=== PATIENT | female | born 1990 | race Caucasian/White ===

== ENCOUNTER 2017-03-23 10:39 | Outpatient (CLI) | payer MEDICAID ==
[2017-03-23 11:37] LABS: APPEARANCE,URINE SLIGHTLY-CLOUDY; BILIRUBIN,URINE NEGATIVE (NEGATIVE); COLOR,URINE YELLOW; GLUCOSE, URINE NEGATIVE (NEGATIVE); KETONES,URINE NEGATIVE (NEGATIVE); LEUKOCYTE ESTERASE,URINE MODERATE (NEGATIVE); NITRITE,URINE NEGATIVE (NEGATIVE); PROTEIN,URINE NEGATIVE (NEGATIVE); URINE SPECIFIC GRAVITY 1.018; UROBILINOGEN,URINE NEGATIVE mg/dL (<2.0)
--- NOTE | 2017-03-23 11:56 | RADIOLOGY REPORT (SQ) ---
EXAM DESCRIPTION: U/S OB LIMITED COMPLETED DATE/TIME: 03/23/2017 11:42 am REASON FOR STUDY: iup 31+6 cervical length vaginal pressure COMPARISON: None. TECHNIQUE: Limited transabdominal and endovaginal grayscale ultrasound for evaluation of specific re quested obstetrical parameters. LIMITATIONS: None. FINDINGS: CERVICAL LENGTH: 3.3 cm Closed. ROS: 7.5 cm. FHR: 149 beats per minute. PRESENTATION: Cephalic. OTHER: No other significant findings. IMPRESSION: LIMITED OBSTETRICAL ULTRASOUND WITH MEASURED PARAMETERS DELINEATED ABOVE. Trimester of : Third trimester - 28 weeks to delivery. TECHNICAL DOCUMENTATION: JOB ID: [id number]- All Rights Reserved
[2017-03-23 11:58] LABS: URINE AMPHETAMINES SCREEN NEGATIVE; URINE BARBITURATES SCREEN NEGATIVE; URINE BENZODIAZEPINES SCREEN NEGATIVE; URINE COCAINE SCREEN NEGATIVE; URINE MARIJUANA (THC) SCREEN NEGATIVE; URINE METHADONE SCREEN NEGATIVE; URINE PHENCYCLIDINE SCREEN NEGATIVE
== END 2017-03-23 12:25 | disposition home or self-care (01) ==
LOC: LC 10:39
PROVIDERS: ATTEND Obstetrics & Gynecology Gynecology
PROC: 4A1HXCZ Monitoring of Products of Conception, Cardiac Rate, External Approach (ICD-10-PCS; principal; 2017-03-23)
DX: O26.893 Other specified pregnancy related conditions, third trimester (principal); E86.0 Dehydration; Z3A.31 31 weeks gestation of pregnancy
CPT/HCPCS: 76815; 80307; 81001; 94760

== ENCOUNTER 2017-04-28 17:38 | Outpatient (CLI) | payer MEDICAID ==
[2017-04-28 18:10] LABS: APPEARANCE,URINE SLIGHTLY-CLOUDY; BILIRUBIN,URINE NEGATIVE (NEGATIVE); COLOR,URINE YELLOW; GLUCOSE, URINE NEGATIVE (NEGATIVE); KETONES,URINE 20 mg/dL (NEGATIVE); LEUKOCYTE ESTERASE,URINE TRACE (NEGATIVE); NITRITE,URINE NEGATIVE (NEGATIVE); PROTEIN,URINE NEGATIVE (NEGATIVE); URINE SPECIFIC GRAVITY 1.012; UROBILINOGEN,URINE NEGATIVE mg/dL (<2.0)
[2017-04-28 18:18] LABS: AMNISURE (ROM) NEGATIVE (NEGATIVE)
[2017-04-28 18:26] LABS: URINE AMPHETAMINES SCREEN NEGATIVE; URINE BARBITURATES SCREEN NEGATIVE; URINE BENZODIAZEPINES SCREEN NEGATIVE; URINE COCAINE SCREEN NEGATIVE; URINE MARIJUANA (THC) SCREEN NEGATIVE; URINE METHADONE SCREEN NEGATIVE; URINE PHENCYCLIDINE SCREEN NEGATIVE
== END 2017-04-28 19:11 | disposition home or self-care (01) ==
LOC: LC 17:38
PROVIDERS: ATTEND Obstetrics & Gynecology Gynecology
PROC: 4A1HXCZ Monitoring of Products of Conception, Cardiac Rate, External Approach (ICD-10-PCS; principal; 2017-04-28)
DX: Z34.93 Encounter for supervision of normal pregnancy, unspecified, third trimester (principal); Z3A.37 37 weeks gestation of pregnancy
CPT/HCPCS: 59025; 80307; 81005; 84112

== ENCOUNTER 2017-05-07 10:50 | Outpatient (CLI) | payer MEDICAID ==
[2017-05-07 11:17] LABS: APPEARANCE,URINE CLOUDY; BILIRUBIN,URINE NEGATIVE (NEGATIVE); COLOR,URINE YELLOW; GLUCOSE, URINE NEGATIVE (NEGATIVE); KETONES,URINE NEGATIVE (NEGATIVE); LEUKOCYTE ESTERASE,URINE MODERATE (NEGATIVE); NITRITE,URINE NEGATIVE (NEGATIVE); PROTEIN,URINE NEGATIVE (NEGATIVE); URINE SPECIFIC GRAVITY 1.009; UROBILINOGEN,URINE NEGATIVE mg/dL (<2.0)
--- NOTE | 2017-05-07 11:27 | Non Stress Test Report ---
Non Stress Test Datetime Report Generated by CPN: 05/07/2017 11:26 DEMOGRAPHIC EGA NST: 38.2 EGA NST: 37.0 INDICATION Indication for Study: Ordered by Provider Indication for Study (NST) Other: LC MONITORING Monitor Explained: Monitor Explained; Test Explained; Patient Verbalized Understanding Monitor Explained: Monitor Explained; Test Explained; Patient Verbalized Understanding Time on Monitor: 05/07/2017 11:05 Time on Monitor: 04/28/2017 18:05 Time off Monitor: 05/07/2017 11:25 Time off Monitor: 04/28/2017 19:02 NST Duration: 20 NST Duration: 57 NST INTERVENTIONS NST Interventions: None NST Interventions: PO Hydration; Reposition Patient Physician Notified NST: H Dc CNM Physician Notified NST: Dr. Crocker BABY A: [id number] BABY A Movement : Present Movement : Present Contraction Frequency : irritability Contraction Frequency : None FHR Baseline : 135 FHR Baseline : 125 Accelerations : 15X15 Accelerations : 15X15 Decelerations : None Decelerations : None Variability : Moderate 6-25bpm Variability : Moderate 6-25bpm NST Review: Meets Criteria for Reactive NST NST Review: Meets Criteria for Reactive NST NST Review and Verified By : Shelley Salazar [facility] NST Review and Verified By : Alexander Pena RN NST Results: Reactive NST Results: Reactive NST REPORT Report Trigger: Send Report
[2017-05-07 11:41] LABS: URINE AMPHETAMINES SCREEN NEGATIVE; URINE BARBITURATES SCREEN NEGATIVE; URINE BENZODIAZEPINES SCREEN NEGATIVE; URINE COCAINE SCREEN NEGATIVE; URINE MARIJUANA (THC) SCREEN NEGATIVE; URINE METHADONE SCREEN NEGATIVE; URINE PHENCYCLIDINE SCREEN NEGATIVE
== END 2017-05-07 12:44 | disposition home or self-care (01) ==
LOC: LC 10:50
PROVIDERS: ATTEND Obstetrics & Gynecology
PROC: 4A1HXCZ Monitoring of Products of Conception, Cardiac Rate, External Approach (ICD-10-PCS; principal; 2017-05-07)
DX: O47.1 False labor at or after 37 completed weeks of gestation (principal); Z3A.38 38 weeks gestation of pregnancy
CPT/HCPCS: 59025; 80307; 81005

== ENCOUNTER 2017-05-12 06:15 | Inpatient (IN) | payer MEDICAID ==
[2017-05-12] MEDS ORDERED: RINGERS SOLUTION,LACTATED 300 ML IV ONE (06:18)
[2017-05-12] MEDS ORDERED: DINOPROSTONE 10 MG VAGINAL INSERT.SR PV PRN (06:18)
[2017-05-12] MEDS ORDERED: RINGERS SOLUTION,LACTATED 1,000 ML IV PRN (06:18)
[2017-05-12] MEDS ORDERED: OXYTOCIN/NORMAL SALINE 20 UNIT/1,000 ML RTUINJ IV PRN ×2 (06:18→13:32)
[2017-05-12 06:58] LABS: ABSOLUTE BASOPHILS # (AUTO) 0.1 10^3/uL (0.0-0.2); ABSOLUTE EOSINOPHILS # (AUTO) 0.3 10^3/uL (0.0-0.6); ABSOLUTE LYMPHOCYTES (AUTO) 2.6 10^3/uL (0.5-4.7); ABSOLUTE MONOCYTES (AUTO) 0.8 10^3/uL (0.1-1.4); ABSOLUTE NEUT (AUTO) 11.5 10^3/uL (1.7-8.2); BASOPHILS % (AUTO) 0.5 % (0-2); EOSINOPHILS % (AUTO) 1.9 % (0-6); HEMATOCRIT 38.9 % (36.0-47.0); HEMOGLOBIN 13.1 g/dL (12.0-15.5); MEAN CORPUSCULAR HEMOGLOBIN 31.6 pg (27.0-33.4); MEAN CORPUSCULAR HGB CONC 33.6 g/dL (32.0-36.0); MEAN CORPUSCULAR VOLUME 94 fl (80-97); MONOCYTES % (AUTO) 5.1 % (3-13); PLATELET COUNT 241 10^3/uL (150-450); RED BLOOD COUNT 4.13 10^6/uL (3.72-5.28); SEGMENTED NEUTROPHILS % (AUTO) 75.5 % (42-78); TOTAL CELLS COUNTED % (AUTO) 100 %; WHITE BLOOD COUNT 15.2 10^3/uL (4.0-10.5)
[2017-05-12 07:06] LABS: APPEARANCE,URINE CLOUDY; BILIRUBIN,URINE NEGATIVE (NEGATIVE); COLOR,URINE YELLOW; GLUCOSE, URINE >=500 mg/dL (NEGATIVE); KETONES,URINE TRACE mg/dL (NEGATIVE); LEUKOCYTE ESTERASE,URINE NEGATIVE (NEGATIVE); NITRITE,URINE NEGATIVE (NEGATIVE); PROTEIN,URINE NEGATIVE (NEGATIVE); URINE SPECIFIC GRAVITY 1.008; UROBILINOGEN,URINE NEGATIVE mg/dL (<2.0)
[2017-05-12] MEDS ORDERED: MISOPROSTOL 0.2 MG TABLET ONE (07:25)
[2017-05-12] MEDS ORDERED: LIDOCAINE 1% INJ-PF (10 MG/ML) 30 ML SDV ONE (07:25)
[2017-05-12] MEDS ORDERED: OXYTOCIN/NORMAL SALINE 20 UNIT/1,000 ML RTUINJ ONE (07:25)
[2017-05-12 07:27] LABS: URINE AMPHETAMINES SCREEN NEGATIVE; URINE BARBITURATES SCREEN NEGATIVE; URINE BENZODIAZEPINES SCREEN NEGATIVE; URINE COCAINE SCREEN NEGATIVE; URINE MARIJUANA (THC) SCREEN NEGATIVE; URINE METHADONE SCREEN NEGATIVE; URINE PHENCYCLIDINE SCREEN NEGATIVE
--- NOTE | 2017-05-12 07:36 | Admission Physical ---
Datetime Report Generated by CPN: 05/12/2017 07:36 CURRENT ADMISSION Chief Complaint: Scheduled Induction of Labor Indication for Induction: Term, Intrauterine ; Induction of Labor Indication for Induction- Other: Elective due to "threat of imminent delivery" per Dr. Morales Admit Plan: Admit to Unit; Initiate Labor Induction Protocol ALLERGIES Medication Allergies: Yes Medication Allergies: codeine (05/12/2017); amoxicillin (05/12/2017) Latex: No Latex Allergies Food Allergies: N/A Environmental Allergies: N/A OBSTETRICAL HISTORY EDC: 05/19/2017 00:00 : 2 Para: 1 Term: 1 : 0 SAB: 0 IAB: 0 Ectopic: 0 Livin Cesareans: 0 VBACs: 0 Multiple Births: 0 Gestational Diabetes: No Rh Sensitization: No Incompetent Cervix: No ANDREWS: No Infertility: No ART Treatment: No Uterine Anomaly: No IUGR: No Hx Previous C/S: No Macrosomia: No Hx Loss/Stillborn: No PIH: No Hx : No Placenta Previa/Abruption: No Depression/PP Depression: No PTL/PROM: No Post Hemorrhage: No Current Procedures: Ultrasound Obstetrical History Comments: G1 2014, , Baby boy at 39 weeks started dilating at 5 months G2 - Current SEE RECORDS Alcohol: No Marijuana : No Cocaine: No Other Illicit Drugs: No Cigarettes: Smoker, Current Status Unknown. 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 Surgery: No Heart Disease: No Hosp/Surgery: Yes Autoimmune Disorder: No Anesthetic Complications: No Kidney Disease: No Abnormal Pap Smear: No Neuro/Epilepsy: No Psychiatric Disorders: No Other Medical Diseases: Yes Hepatitis/Liver Disease: No Significant Family History: No Varicosities/Phlebitis: No Trauma/Violence : No Thyroid Dysfunction: No Medical History Comments: Tonsillectomy in 2003; Pins in elbow in 1999 _ 2000 INFECTIOUS HISTORY Gonorrhea: No Genital Herpes: No Chlamydia: No Tuberculosis: No Syphilis: No Hepatitis: No HIV/AIDS Exposure: No Rash or Viral Illness: No HPV: No PHYSICAL EXAM General: Normal HEENT: Normal Neurologic: Normal Thyroid: Normal Heart: Normal Lungs: Normal Breast: Normal Back: Normal Abdomen: Normal Genitourinary Exam: Normal Extremities: Normal DTRs: Normal Pelvic Type: Adequate Vital Signs: Reviewed VAGINAL EXAM Dilatation: 2 Effacement: 80 Station: -2 MEMBRANES Pooling: Negative Membranes: Intact FETUS A EGA: 39.0 Monitoring: External US FHR- Baseline: 150 Variability: Moderate 6-25bpm Accelerations: 15X15 Decelerations: None FHR Category: Category I Estimated Weight (gm): 3500 Presentation: Vertex PLANS FOR LABOR AND DELIVERY Labor and Delivery: None Pain Management: Natural Feeding Preference: Formula Benefit of Breast Feed Discussed: Yes Circumcision: Yes INFORMED CONSENT Signature: with User ID: [email or web address]
--- NOTE | 2017-05-12 09:21 | Admission Physical ---
Datetime Report Generated by CPN: 05/12/2017 09:21 CURRENT ADMISSION Chief Complaint: Scheduled Induction of Labor Indication for Induction: Not Applicable Indication for Induction: Term, Intrauterine Indication for Induction- Other: Elective due to "threat of imminent delivery" per Dr. Morales Admit Plan: Admit to Unit ALLERGIES Medication Allergies: Yes Medication Allergies: codeine (05/12/2017); amoxicillin (05/12/2017) Latex: No Latex Allergies Food Allergies: N/A Environmental Allergies: N/A OBSTETRICAL HISTORY EDC: 05/19/2017 00:00 : 2 Para: 1 Term: 1 : 0 SAB: 0 IAB: 0 Ectopic: 0 Livin Cesareans: 0 VBACs: 0 Multiple Births: 0 Gestational Diabetes: No Rh Sensitization: No Incompetent Cervix: No ANDREWS: No Infertility: No ART Treatment: No Uterine Anomaly: No IUGR: No Hx Previous C/S: No Macrosomia: No Hx Loss/Stillborn: No PIH: No Hx : No Placenta Previa/Abruption: No Depression/PP Depression: No PTL/PROM: No Post Hemorrhage: No Current Procedures: Ultrasound Obstetrical History Comments: G1 2014, , Baby boy at 39 weeks started dilating at 5 months G2 - Current SEE RECORDS Alcohol: No Marijuana : No Cocaine: No Other Illicit Drugs: No Cigarettes: Smoker, Current Status Unknown. 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 Surgery: No Heart Disease: No Hosp/Surgery: Yes Autoimmune Disorder: No Anesthetic Complications: No Kidney Disease: No Abnormal Pap Smear: No Neuro/Epilepsy: No Psychiatric Disorders: No Other Medical Diseases: Yes Hepatitis/Liver Disease: No Significant Family History: No Varicosities/Phlebitis: No Trauma/Violence : No Thyroid Dysfunction: No Medical History Comments: Tonsillectomy in 2003; Pins in elbow in 1999 _ 2000 INFECTIOUS HISTORY Gonorrhea: No Genital Herpes: No Chlamydia: No Tuberculosis: No Syphilis: No Hepatitis: No HIV/AIDS Exposure: No Rash or Viral Illness: No HPV: No PHYSICAL EXAM General: Normal HEENT: Normal Neurologic: Normal Thyroid: Normal Heart: Normal Lungs: Normal Breast: Normal Back: Normal Abdomen: Normal Genitourinary Exam: Normal Extremities: Normal DTRs: Normal Pelvic Type: Adequate Vital Signs: Reviewed VAGINAL EXAM Dilatation: 2 Effacement: 80 Station: -2 MEMBRANES Pooling: Negative Membranes: Intact FETUS A EGA: 39.0 Monitoring: External US FHR- Baseline: 130 Variability: Moderate 6-25bpm Accelerations: 15X15 Decelerations: None FHR Category: Category I Estimated Weight (gm): 3500 Presentation: Vertex Admit Comment: 27 yo admitted for IOL secondary to imminent delivery EDC 05/19/17 EGA 39 weeks abdomen nontender FHTs 130s ctxs irregular 6-7 min induction per protocol anticipate risks/benefits reviewed PLANS FOR LABOR AND DELIVERY Labor and Delivery: None Pain Management: Natural Feeding Preference: Formula Benefit of Breast Feed Discussed: Yes Circumcision: Yes INFORMED CONSENT Assignment: Raymundo Crocker MD Signature: with User ID: [email or web address] : with User ID: [email or web address]
--- NOTE | 2017-05-12 09:46 | L&D Progress Notes ---
PROGRESS NOTES Datetime Report Generated by CPN: 05/12/2017 09:45 PROGRESS NOTE Procedures: Artificial ROM Plan: Continue Present Management; Induction Informed Consent Obtained: Vaginal Delivery; Risks, Benefits and Alternatives Discussed Vital Signs : Reviewed Comment: update abdomen nontender FHTs 130s ctxs 3-5 min pitocin at 8 mu/min efw 8.5 lbs sve 3/50/-2 anticipate r/b/a reviewed VAGINAL EXAM Dilatation: 3 Dilatation: 2 Effacement: 50 Effacement: 80 Station: -2 Station: -2 MEMBRANES Pooling: Negative Membranes: Intact Membranes: Intact FETUS A FHR - Baseline: 130 Monitoring: External US Variability: Moderate 6-25bpm Decelerations: None FHR Category: Category I : 39.0 : 39.0 Estimated Weight (gm): 3500 Presentation: Vertex Presentation: Vertex SIGNATURE SIGNATURE: 10,[id number];13,[id number];14,[id number] SIGNATURE: 14,[id number];13,[id number] SIGNATURE: 13,[id number];14,[id number] SIGNATURE: 14,[id number] Assignment: Raymundo Crocker MD Signature: with User ID: [email or web address] : with User ID: [email or web address]
[2017-05-12] MEDS ORDERED: DIBUCAINE 1% OINTMENT 28 GM TP PRN (13:32)
[2017-05-12] MEDS ORDERED: PROMETHAZINE HCL 25 MG SUPP.RECT PR PRN (13:32)
[2017-05-12] MEDS ORDERED: PSEUDOEPHEDRINE HCL 30 MG TABLET PO PRN (13:32)
[2017-05-12] MEDS ORDERED: DIPH/PERTUSS(ACELL)/TETANUS VAC/PF 0.5 ML SYR (>=10YO) IM PRN (13:32)
[2017-05-12] MEDS ORDERED: PROMETHAZINE HCL INJ 25 MG/1 ML VIAL IV PRN (13:32)
[2017-05-12] MEDS ORDERED: GLYCERIN/WITCH HAZEL LEAF 1 EACH MED..PAD TP PRN (13:32)
[2017-05-12] MEDS ORDERED: PROMETHAZINE HCL 25 MG TABLET PO PRN (13:32)
[2017-05-12] MEDS ORDERED: ACETAMINOPHEN 650 MG SUPP.RECT PR PRN (13:32)
[2017-05-12] MEDS ORDERED: ZOLPIDEM TARTRATE 5 MG TABLET PO PRN (13:32)
[2017-05-12] MEDS ORDERED: MEASLES,MUMPS&RUBELLA VACC/PF 0.5 ML VIAL SUBCUT PRN (13:32)
[2017-05-12] MEDS ORDERED: BENZOCAINE/MENTHOL AEROSOL SPRAY 56 ML TOP PRN (13:32)
[2017-05-12] MEDS ORDERED: MAGNESIUM HYDROXIDE SUSP 30 ML UDCUP PO PRN (13:32)
[2017-05-12] MEDS ORDERED: NA PHOS,M-B/NA PHOS,DI-BA (ADULT) 133 ML ENEMA PR PRN (13:32)
[2017-05-12] MEDS ORDERED: DIPHENHYDRAMINE HCL 25 MG CAPSULE PO PRN (13:32)
[2017-05-12] MEDS: IBUPROFEN 800 MG TABLET PO SCH ×2 (16:05→22:46)
[2017-05-12] MEDS: FERROUS SULFATE 325 MG TABLET PO SCH (17:52)
[2017-05-12] MEDS: DOCUSATE SODIUM 100 MG CAPSULE PO SCH (17:52)
[2017-05-12] MEDS: FAMOTIDINE 20 MG TABLET PO SCH (22:47)
[2017-05-13] MEDS: IBUPROFEN 800 MG TABLET PO SCH ×3 (06:07→22:10)
[2017-05-13 08:23] LABS: HEMATOCRIT 37.2 % (36.0-47.0); HEMOGLOBIN 12.4 g/dL (12.0-15.5); MEAN CORPUSCULAR HEMOGLOBIN 31.3 pg (27.0-33.4); MEAN CORPUSCULAR HGB CONC 33.3 g/dL (32.0-36.0); MEAN CORPUSCULAR VOLUME 94 fl (80-97); PLATELET COUNT 235 10^3/uL (150-450); RED BLOOD COUNT 3.96 10^6/uL (3.72-5.28); RED CELL DISTRIBUTION WIDTH 14.1 % (11.5-14.0); WHITE BLOOD COUNT 16.2 10^3/uL (4.0-10.5)
--- NOTE | 2017-05-13 10:00 | PDOC PROGRESS REPORT ---
Subjective-OB Progress Note for:: 05/13/17 Subjective: s/p day #1 Doing well at this time, states lochia is stable, pain well controlled, voiding without difficulty. Physical Exam (OB) Vital Signs: Temp Pulse Resp BP Pulse Ox 97.9 F 81 15 114/64 98 05/13/17 07:57 05/13/17 07:57 05/13/17 07:57 05/13/17 07:57 05/13/17 07:57 Intake & Output 05/12/17 05/13/17 05/14/17 06:59 06:59 06:59 Weight 114.6 kg - Lochia Lochia Amount: Small 10-25 ml Lochia Color: Rubra/Red - Abdomen Description: Soft, Round Hernia Present: No Fundal Description: Firm, Midline Fundal Height: u/u - u/2 Objective-Diagnostic Laboratory: 05/13/17 07:19 05/13/17 07:19 WBC 16.2 H RBC 3.96 Hgb 12.4 Hct 37.2 MCV 94 MCH 31.3 MCHC 33.3 RDW 14.1 H Plt Count 235 Assessment and Plan(PN) - Assessment and Plan (1) Vaginal delivery Is this a current diagnosis for this admission?: Yes Plan: routine pp care - Time Spent with Patient Time with patient: Less than 15 minutes Critical Time spent with patient: Less than 15 minutes Medications reviewed and adjusted accordingly: Yes - Disposition Anticipated Discharge: Home Within: within 24 hours
[2017-05-13] MEDS: SENNOSIDES/DOCUSATE 8.6-50 MG 1 EACH TABLET PO SCH (10:12)
[2017-05-13] MEDS: PRENATAL VITAMIN W DHA CAPSULE PO SCH (10:12)
[2017-05-13] MEDS: FAMOTIDINE 20 MG TABLET PO SCH ×2 (10:12→22:11)
[2017-05-13] MEDS: FERROUS SULFATE 325 MG TABLET PO SCH ×2 (10:12→18:45)
[2017-05-13] MEDS: DOCUSATE SODIUM 100 MG CAPSULE PO SCH ×2 (10:12→18:45)
[2017-05-14] MEDS: IBUPROFEN 800 MG TABLET PO SCH (05:36)
[2017-05-14 08:19] VITALS: BP 138/79
--- NOTE | 2017-05-14 08:42 | Admission Physical ---
Datetime Report Generated by CPN: 05/14/2017 08:42 CURRENT ADMISSION Indication for Induction: Not Applicable Admit Impression : Term, Intrauterine Admit Plan: Admit to Unit PHYSICAL EXAM General: Normal HEENT: Normal Neurologic: Normal Thyroid: Normal Heart: Normal Lungs: Normal Breast: Normal Back: Normal Abdomen: Normal Genitourinary Exam: Normal Extremities: Normal DTRs: Normal Pelvic Type: Adequate Vital Signs: Reviewed VAGINAL EXAM Dilatation: 3 Effacement: 50 Station: -2 MEMBRANES Membranes: Intact FETUS A Monitoring: External US FHR- Baseline: 130 Variability: Moderate 6-25bpm Accelerations: 15X15 Decelerations: None FHR Category: Category I Presentation: Vertex Admit Comment: 27 yo admitted for IOL secondary to imminent delivery EDC 05/19/17 EGA 39 weeks abdomen nontender FHTs 130s ctxs irregular 6-7 min induction per protocol anticipate risks/benefits reviewed INFORMED CONSENT Informed Consent Obtained: Vaginal Delivery; Risks, Benefits and Alternatives Discussed Assignment: Raymundo Crocker MD Signature: with User ID: [email or web address] : with User ID: [email or web address]
[2017-05-14] MEDS: DOCUSATE SODIUM 100 MG CAPSULE PO SCH (09:35)
[2017-05-14] MEDS: SENNOSIDES/DOCUSATE 8.6-50 MG 1 EACH TABLET PO SCH (09:35)
[2017-05-14] MEDS: FAMOTIDINE 20 MG TABLET PO SCH (09:35)
[2017-05-14] MEDS: PRENATAL VITAMIN W DHA CAPSULE PO SCH (09:35)
[2017-05-14] MEDS: FERROUS SULFATE 325 MG TABLET PO SCH (09:36)
--- NOTE | 2017-05-14 10:30 | PDOC DISCHARGE SUMMARY ---
Final Diagnosis Discharge Date: 05/14/17 - Final Diagnosis (1) Vaginal delivery Is this a current diagnosis for this admission?: Yes Discharge Data - Discharge Medication Prescriptions: Ibuprofen [Motrin 800 mg Tablet] 800 mg PO Q8 #90 tablet Home Medications: Ibuprofen [Motrin 800 mg Tablet] 800 mg PO Q8 #90 tablet 05/14/17 Gestational Age: 39 Reason(s) for Admission: Induction of Labor Procedures: NST Intrapartum Procedure(s): Spontaneous Vaginal Delivery - [place] Data Baby 1 Male Home with Mother: Yes Complications: No - Diagnosis Test Laboratory: Temp Pulse Resp BP Pulse Ox 97.7 F 74 16 138/79 H 97 05/14/17 08:16 05/14/17 08:16 05/14/17 08:16 05/14/17 08:16 05/14/17 08:16 05/12/17 05/12/17 05/13/17 06:23 06:42 07:19 RBC 4.13 3.96 Hgb 13.1 12.4 Hct 38.9 37.2 Urine Opiates Screen NEGATIVE - Discharge information/Instructions Discharge Activity: Activity As Tolerated, Balance Activity w/Rest, Pelvic Rest , Walk Frequently Discharge Diet: Regular Disposition: HOME, SELF-CARE Follow up with: [facility] in: 4, Weeks
--- NOTE | 2017-05-25 17:17 | Delivery Summary ---
Del Sum A-C Datetime Report Generated by CPN: 05/25/2017 17:17 DELIVERY PERSONNEL DELIVERY PERSONNEL: [id number] Delivery Doctor:: Jose Luis Grady CNM Labor and Delivery Nurse:: KRISTAN Youssef Labor and Delivery Nurse:: Rocio Gael, ESTRADA Filter Tip Catcher/CLOTH PRESSER: Martha Hill, RN LABOR AND DELIVERY Filter Tip Catcher/CLOTH PRESSER: Ana Mukherjee, ST MATERNAL INFORMATION Delivery Anesthesia: None Medications After Delivery: Pitocin Bolus-Please Comment; Pitocin Drip 20 Units/1000ml NSS Estimated Blood Loss (ml): 150 Maternal Complications: None Provider Comments: delivery of viable baby boy apgars 8/9 bulb suctioned on perinuem left compound hand NESSA body cord x 1 to abdomen good control tactile stimulation elicits spont cry cord clamped cut by fob cord blood obtained 3vc placenta intact EBL 150 cc perineum intact pt bonding well with LABOR SUMMARY EDC: 05/19/2017 00:00 No. Babies in Womb: 1 Attempted: No Labor Anesthesia: None LABOR INFORMATION Reason for Induction- Other: ELECTIVE Onset of Labor: 05/12/2017 09:30 Complete Dilatation: 05/12/2017 12:57 Oxytocin: Induction Group B Beta Strep: Negative Antibiotics # of Doses: 0 Steroids Given: None Reason Steroids Not Administered: Not Applicable MEMBRANES Membranes Rupture Method: Artificial Rupture of Membranes: 05/12/2017 09:30 Length of Rupture (hr): 3.50 Amniotic Fluid Color: Clear Amniotic Fluid Amount: Moderate STAGES OF LABOR Stage 1 hr: 3 Stage 1 min: 27 Stage 2 hr: 0 Stage 2 min: 3 Stage 3 hr: 0 Stage 3 min: 5 Total Time in Labor hr: 3 Total Time in Labor min: 35 VAGINAL DELIVERY Episiotomy: None Laceration #1: None Laceration Repair: Not Applicable Sponge Count Correct: N/A Sharps Count Correct: N/A BABY A INFORMATION Infant Delivery Date/Time: 05/12/2017 13:00 Method of Delivery: Vaginal Born in Route : No : N/A Forceps: N/A Vacuum Extraction: N/A Shoulder Dystocia : No PRESENTATION/POSITION BABY A Presentation: Cephalic Cephalic Presentation: Vertex Vertex Position: Left Occipital Anterior WITH LT COMPOUND HAND Breech Presentation: N/A PLACENTA INFORMATION BABY A Placenta Delivery Time : 05/12/2017 13:05 Placenta Method of Delivery: Spontaneous Placenta Status: Delivered SCORES BABY A Heart Rate 1 min: >100 bpm Resp Effort 1 min: Good Cry Reflex Irritability 1 min: Cough or Sneeze or Pulls Away Muscle Tone 1 min: Active Motion Color 1 min: Blue/Pale Resuscitation Effort 1 min: Tactile Stimulation SCORE 1 MIN: 8 Heart Rate 5 min: >100 bpm Resp Effort 5 min: Good Cry Reflex Irritability 5 min: Cough or Sneeze or Pulls Away Muscle Tone 5 min: Active Motion Color 5 min: Body [place], Extremities Blue Resuscitation Effort 5 min: Tactile Stimulation SCORE 5 MIN: 9 INFANT INFORMATION BABY A Gestational Age at Delivery: 39.0 Gestational Status: Full Term- 39- 40.6 Weeks Infant Outcome : Liveborn Infant Condition : Stable Sex: Male IDENTIFICATION BABY A Infant Verification Date/Time: 05/12/2017 13:18 ID Band Number: [id number] Mother's Name Verified: Yes RN Verifying : Alexander Pena RNC/A Malloy RN WEIGHT/LENGTH BABY A Birthweight (gm): 3270 Weight (lb): 7 Infant Weight (oz): 3 Infant Length (in): 19.50 Infant Length (cm): 49.53 CORD INFORMATION BABY A No. Cord Vessels: 3 Nuchal Cord : N/A Nuchal Cord- Other: BODY CORD Cord Blood Taken: Yes-For Storage (Mom's Blood type +) Suction: Mouth; Nose ASSESSMENT BABY A Complications: None Physical Findings at Delivery: Within Normal Limits Respirations: Appears Normal Skin to Skin: Yes Rn Long Term Care/ALS Called : No Infant Care By: KRISTAN WHITTAKER Transferred To: Remains with Mother BABY B INFORMATION : N/A SIGNATURES Assignment: Raymundo Crocker MD Signature: with User ID: [email or web address] : with User ID: [email or web address]
== END 2017-05-14 13:10 | disposition home or self-care (01) | DRG 775 ==
LOC: LR 06:15 → 2S 15:26
PROVIDERS: ADMIT Obstetrics & Gynecology Gynecology; ATTEND Obstetrics & Gynecology Gynecology
PROC: 10E0XZZ Delivery of Products of Conception, External Approach (ICD-10-PCS; principal; 2017-05-12)
PROC: 10907ZC Drainage of Amniotic Fluid, Therapeutic from Products of Conception, Via Natural or Artificial Opening (ICD-10-PCS; 2017-05-12)
PROC: 3E033VJ Introduction of Other Hormone into Peripheral Vein, Percutaneous Approach (ICD-10-PCS; 2017-05-12)
PROC: 4A1HXCZ Monitoring of Products of Conception, Cardiac Rate, External Approach (ICD-10-PCS; 2017-05-12)
DX: O32.6XX0 Maternal care for compound presentation, not applicable or unspecified (principal); F17.210 Nicotine dependence, cigarettes, uncomplicated; O69.81X0 Labor and delivery complicated by cord around neck, without compression, not applicable or unspecified; O99.334 Smoking (tobacco) complicating childbirth; Z88.6 Allergy status to analgesic agent; Z88.1 Allergy status to other antibiotic agents; Z28.21 Immunization not carried out because of patient refusal; Z3A.39 39 weeks gestation of pregnancy; Z37.0 Single live birth
CPT/HCPCS: 36415; 80307; 81005; 85025; 85027; 86592; 86850; 86900; 86901; J2590; J3490

== ENCOUNTER 2018-10-17 12:49 | Outpatient (CLI) | payer MEDICAID ==
--- NOTE | 2018-10-17 14:50 | Non Stress Test Report ---
Non Stress Test Datetime Report Generated by CPN: 10/17/2018 14:50 DEMOGRAPHIC Test Number: 1 EGA NST: 37.2 INDICATION Indication for Study: Ordered by Provider MONITORING Monitor Explained: Monitor Explained; Test Explained; Patient Verbalized Understanding Time on Monitor: 10/17/2018 13:40 Time off Monitor: 10/17/2018 14:10 NST Duration: 30 NST INTERVENTIONS NST Interventions: PO Hydration Physician Notified NST: K Martines CNM BABY A: [id number] BABY A Movement : Present Contraction Frequency : none FHR Baseline : 130 Accelerations : 15X15 Decelerations : None Variability : Moderate 6-25bpm NST Review: Meets Criteria for Reactive NST NST Review and Verified By : Shelley Bowensavaakil RN NST Results: Reactive NST REPORT Report Trigger: Send Report
== END 2018-10-17 14:55 | disposition home or self-care (01) ==
LOC: LC 12:49
PROVIDERS: ATTEND Obstetrics & Gynecology
DX: Z34.93 Encounter for supervision of normal pregnancy, unspecified, third trimester (principal)
CPT/HCPCS: 59025

== ENCOUNTER 2018-10-30 18:36 | Inpatient (IN) | payer MEDICAID ==
[2018-10-30 19:10] LABS: APPEARANCE,URINE CLOUDY; BILIRUBIN,URINE NEGATIVE (NEGATIVE); COLOR,URINE YELLOW; GLUCOSE, URINE NEGATIVE (NEGATIVE); KETONES,URINE TRACE mg/dL (NEGATIVE); LEUKOCYTE ESTERASE,URINE LARGE (NEGATIVE); NITRITE,URINE NEGATIVE (NEGATIVE); PROTEIN,URINE 30 mg/dL (NEGATIVE); UROBILINOGEN,URINE NEGATIVE mg/dL (<2.0)
[2018-10-30 19:43] LABS: URINE AMPHETAMINES SCREEN NEGATIVE; URINE BARBITURATES SCREEN NEGATIVE; URINE BENZODIAZEPINES SCREEN NEGATIVE; URINE COCAINE SCREEN NEGATIVE; URINE MARIJUANA (THC) SCREEN NEGATIVE; URINE METHADONE SCREEN NEGATIVE; URINE PHENCYCLIDINE SCREEN NEGATIVE
[2018-10-30] MEDS ORDERED: RINGERS SOLUTION,LACTATED 1,000 ML IV PRN (20:07)
[2018-10-30] MEDS ORDERED: RINGERS SOLUTION,LACTATED 1,000 ML IV ONE (20:07)
[2018-10-30] MEDS ORDERED: OXYTOCIN/NORMAL SALINE 20 UNIT/1,000 ML RTUINJ IV PRN ×2 (20:08→22:28)
[2018-10-30 20:31] LABS: ABSOLUTE BASOPHILS # (AUTO) 0.1 10^3/uL (0.0-0.2); ABSOLUTE EOSINOPHILS # (AUTO) 0.3 10^3/uL (0.0-0.6); ABSOLUTE MONOCYTES (AUTO) 0.8 10^3/uL (0.1-1.4); ABSOLUTE NEUT (AUTO) 10.8 10^3/uL (1.7-8.2); BASOPHILS % (AUTO) 0.4 % (0-2); EOSINOPHILS % (AUTO) 1.7 % (0-6); HEMATOCRIT 37.6 % (36.0-47.0); HEMOGLOBIN 12.9 g/dL (12.0-15.5); LYMPHOCYTES % (AUTO) 20.1 % (13-45); MEAN CORPUSCULAR HGB CONC 34.2 g/dL (32.0-36.0); MEAN CORPUSCULAR VOLUME 93 fl (80-97); MONOCYTES % (AUTO) 5.6 % (3-13); PLATELET COUNT 216 10^3/uL (150-450); RED BLOOD COUNT 4.03 10^6/uL (3.72-5.28); RED CELL DISTRIBUTION WIDTH 13.7 % (11.5-14.0); SEGMENTED NEUTROPHILS % (AUTO) 72.2 % (42-78); TOTAL CELLS COUNTED % (AUTO) 100 %; WHITE BLOOD COUNT 14.9 10^3/uL (4.0-10.5)
[2018-10-30] MEDS ORDERED: OXYTOCIN/NORMAL SALINE 20 UNIT/1,000 ML RTUINJ ONE (20:47)
[2018-10-30] MEDS ORDERED: LIDOCAINE 1% INJ-PF (10 MG/ML) 30 ML SDV ONE (20:47)
[2018-10-30] MEDS ORDERED: OXYTOCIN 10 UNIT/ML VIAL ONE (20:47)
[2018-10-30] MEDS ORDERED: MISOPROSTOL 0.2 MG TABLET ONE (20:47)
--- NOTE | 2018-10-30 21:31 | Admission Physical ---
Datetime Report Generated by CPN: 10/30/2018 21:31 CURRENT ADMISSION Chief Complaint: Uterine Contractions Indication for Induction: Not Applicable Admit Impression : Term, Intrauterine ; Active Labor Admit Plan: Admit to Unit; Initiate Labor Protocol ALLERGIES Medication Allergies: Yes Medication Allergies: codeine/VOMITING (10/30/2018); amoxicillin/VOMITING (10/30/2018) Latex: No Latex Allergies Food Allergies: none Environmental Allergies: none OBSTETRICAL HISTORY EDC: 11/05/2018 00:00 : 3 Para: 2 Term: 2 : 0 SAB: 0 IAB: 0 Ectopic: 0 Livin Cesareans: 0 VBACs: 0 Multiple Births: 0 Gestational Diabetes: No Rh Sensitization: No Incompetent Cervix: No ANDREWS: No Infertility: No ART Treatment: No Uterine Anomaly: No IUGR: No Hx Previous C/S: No Macrosomia: No Hx Loss/Stillborn: No PIH: No Hx : No Placenta Previa/Abruption: No Depression/PP Depression: No PTL/PROM: No Post Hemorrhage: No Current Procedures: Ultrasound; NST Obstetrical History Comments: G1 2014 vaginal G2 2018 vaginal G3 current SEE RECORDS Alcohol: No Marijuana : No Cocaine: No Other Illicit Drugs: No Cigarettes: Current Everyday Smoker. 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 Surgery: No Heart Disease: No Hosp/Surgery: Yes Autoimmune Disorder: No Anesthetic Complications: No Kidney Disease: No Abnormal Pap Smear: No Neuro/Epilepsy: No Psychiatric Disorders: No Other Medical Diseases: No Hepatitis/Liver Disease: No Significant Family History: No Varicosities/Phlebitis: No Trauma/Violence : No Thyroid Dysfunction: No Medical History Comments: Tonsilectomy Elbow fx, surgery with pins as child INFECTIOUS HISTORY Gonorrhea: Unknown Genital Herpes: Unknown Chlamydia: Unknown Tuberculosis: Unknown Syphilis: Unknown Hepatitis: Unknown HIV/AIDS Exposure: Unknown Rash or Viral Illness: Unknown HPV: Unknown Infectious History Comments: Family present, unable to ask at current visit (10/17/18) PHYSICAL EXAM General: Normal HEENT: Normal Neurologic: Normal Thyroid: Deferred Heart: Normal Lungs: Normal Breast: Deferred Back: Normal Abdomen: Normal Genitourinary Exam: Normal Extremities: Normal DTRs: Normal Pelvic Type: Adequate Vital Signs: Reviewed VAGINAL EXAM Dilatation: 3 Effacement: 70 Station: -1 Contraction Comments: Q 2-3 MEMBRANES Membranes: Intact FETUS A EGA: 39.1 Monitoring: External US FHR- Baseline: 125 Variability: Moderate 6-25bpm Accelerations: 15X15 Decelerations: None FHR Category: Category I Presentation: Vertex Admit Comment: 28yo at 39+1ega presents for contractions. Cvx 3cm initially then admitted and reviewed possible augmentation with pitocin. Upon re-evaluation for initiation of pitocin cvx changed to 5-6cm and AROM performed with Clear fluid. Anticipate . Pt denies h/o HSV but HSV titers were drawn this for evaluation of bells palsy. Denies h/o HSV oral/genital. GBS negative. Admit and anticipate . PLANS FOR LABOR AND DELIVERY Labor and Delivery: None Pain Management: None Feeding Preference: Formula Benefit of Breast Feed Discussed: Yes Circumcision: Yes INFORMED CONSENT Informed Consent Obtained: Vaginal Delivery; Risks, Benefits and Alternatives Discussed Signature: with User ID: [email or web address]
[2018-10-30] MEDS ORDERED: DIPH/PERTUSS(ACELL)/TETANUS VAC/PF 0.5 ML SYR (>=10YO) IM PRN (22:28)
[2018-10-30] MEDS ORDERED: PROMETHAZINE HCL 25 MG SUPP.RECT PR PRN (22:28)
[2018-10-30] MEDS ORDERED: MEASLES,MUMPS&RUBELLA VACC/PF 0.5 ML VIAL SUBCUT PRN (22:28)
[2018-10-30] MEDS ORDERED: PROMETHAZINE HCL 25 MG TABLET PO PRN (22:28)
[2018-10-30] MEDS ORDERED: DIBUCAINE 1% OINTMENT 56 GM TP PRN (22:28)
[2018-10-30] MEDS ORDERED: BENZOCAINE/MENTHOL AEROSOL SPRAY 56 ML TOP PRN (22:28)
[2018-10-30] MEDS ORDERED: GLYCERIN/WITCH HAZEL LEAF 1 EACH MED..WIPE TP PRN (22:28)
[2018-10-30] MEDS ORDERED: NA PHOS,M-B/NA PHOS,DI-BA (ADULT) 133 ML ENEMA PR PRN (22:28)
[2018-10-30] MEDS ORDERED: ACETAMINOPHEN WITH CODEINE #3 TABLET PO PRN ×2 (22:28)
[2018-10-30] MEDS ORDERED: PROMETHAZINE HCL INJ 25 MG/1 ML VIAL IV PRN (22:28)
[2018-10-30] MEDS ORDERED: ZOLPIDEM TARTRATE 5 MG TABLET PO PRN (22:28)
[2018-10-30] MEDS ORDERED: MAGNESIUM HYDROXIDE SUSP 30 ML UDCUP PO PRN (22:28)
[2018-10-30] MEDS ORDERED: DIPHENHYDRAMINE HCL 25 MG CAPSULE PO PRN (22:28)
[2018-10-30] MEDS ORDERED: ACETAMINOPHEN 325 MG TABLET PO PRN (22:28)
[2018-10-30] MEDS ORDERED: PSEUDOEPHEDRINE HCL 30 MG TABLET PO PRN (22:28)
[2018-10-30] MEDS ORDERED: FAMOTIDINE 20 MG TABLET PO ONE (22:45)
[2018-10-31] MEDS ORDERED: IBUPROFEN 800 MG TABLET ONE (00:32)
[2018-10-31] MEDS: IBUPROFEN 800 MG TABLET PO SCH ×3 (05:15→21:10)
[2018-10-31 06:53] LABS: HEMATOCRIT 38.8 % (36.0-47.0); HEMOGLOBIN 13.2 g/dL (12.0-15.5); MEAN CORPUSCULAR HEMOGLOBIN 31.7 pg (27.0-33.4); MEAN CORPUSCULAR VOLUME 93 fl (80-97); PLATELET COUNT 222 10^3/uL (150-450); RED BLOOD COUNT 4.15 10^6/uL (3.72-5.28); RED CELL DISTRIBUTION WIDTH 13.7 % (11.5-14.0); WHITE BLOOD COUNT 19.2 10^3/uL (4.0-10.5)
--- NOTE | 2018-10-31 09:15 | PDOC PROGRESS REPORT ---
Subjective-OB Progress Note for:: 10/31/18 Subjective: Doing well, no c/o Physical Exam (OB) Vital Signs: Temp Pulse Resp BP Pulse Ox 97.7 F 66 14 109/60 97 10/31/18 07:33 10/31/18 07:33 10/31/18 07:33 10/31/18 07:33 10/31/18 07:33 Intake & Output 10/30/18 10/31/18 11/01/18 06:59 06:59 06:59 Weight 116.3 kg - PIH/Pre-Eclampsia DTR's: 2 + Clonus: Negative Headache: Absent Epigastric Pain: No Visual Changes: No - Lochia Lochia Amount: Small 10-25 ml Lochia Color: Rubra/Red - Abdomen Description: Soft Hernia Present: No Fundal Description: Firm, Midline Fundal Height: u/u - u/2 Objective-Diagnostic Laboratory: 10/31/18 06:37 10/30/18 10/30/18 10/30/18 18:44 20:15 20:15 WBC 14.9 H RBC 4.03 Hgb 12.9 Hct 37.6 MCV 93 MCH 32.0 MCHC 34.2 RDW 13.7 Plt Count 216 Seg Neutrophils % 72.2 Urine Color YELLOW Urine Appearance CLOUDY Urine pH 7.0 Ur Specific [place] 1.020 Urine Protein 30 H Urine Glucose (UA) NEGATIVE Urine Ketones TRACE H Urine Blood NEGATIVE Urine Nitrite NEGATIVE Ur Leukocyte Esterase LARGE H Blood Type A POSITIVE Antibody Screen NEGATIVE 10/31/18 06:37 WBC 19.2 H RBC 4.15 Hgb 13.2 Hct 38.8 MCV 93 MCH 31.7 MCHC 34.0 RDW 13.7 Plt Count 222 Seg Neutrophils % Urine Color Urine Appearance Urine pH Ur Specific [place] Urine Protein Urine Glucose (UA) Urine Ketones Urine Blood Urine Nitrite Ur Leukocyte Esterase Blood Type Antibody Screen Assessment and Plan(PN) - Assessment and Plan (1) Active labor at term Is this a current diagnosis for this admission?: Yes (2) Vaginal delivery Is this a current diagnosis for this admission?: Yes - Time Spent with Patient Time with patient: Less than 15 minutes Medications reviewed and adjusted accordingly: Yes - Disposition Anticipated Discharge: Home Within: within 24 hours
[2018-10-31] MEDS: PRENATAL VITAMIN W DHA CAPSULE PO SCH (09:54)
[2018-10-31] MEDS: FERROUS SULFATE 325 MG TABLET PO SCH ×2 (09:55→17:22)
[2018-10-31] MEDS: DOCUSATE SODIUM 100 MG CAPSULE PO SCH ×2 (09:55→17:22)
[2018-10-31] MEDS: SENNOSIDES/DOCUSATE 8.6-50 MG 1 EACH TABLET PO SCH (09:55)
[2018-10-31] MEDS: FAMOTIDINE 20 MG TABLET PO SCH ×2 (09:55→21:10)
[2018-11-01] MEDS: IBUPROFEN 800 MG TABLET PO SCH ×2 (05:30→14:21)
[2018-11-01 08:12] VITALS: BP 122/71
--- NOTE | 2018-11-01 09:36 | PDOC DISCHARGE SUMMARY ---
Final Diagnosis Discharge Date: 11/01/18 - PP Day #2, , O+, rubella immune - Final Diagnosis (1) Normal course Is this a current diagnosis for this admission?: Yes (2) Active labor at term Is this a current diagnosis for this admission?: Yes Discharge Data - Discharge Medication Prescriptions: Ibuprofen [Motrin 800 mg Tablet] 800 mg PO Q8 #60 tablet Home Medications: Vitamin [-U Multiple Vitamin Capsule] 1 cap PO DAILY 10/17/18 Ibuprofen [Motrin 800 mg Tablet] 800 mg PO Q8 #60 tablet 11/01/18 Reason(s) for Admission: Onset of Labor Procedures: Ultrasound Intrapartum Procedure(s): Spontaneous Vaginal Delivery - Diagnosis Test Laboratory: Temp Pulse Resp BP Pulse Ox 97.9 F 66 12 122/71 99 11/01/18 07:50 11/01/18 07:50 11/01/18 07:50 11/01/18 07:50 11/01/18 07:50 10/30/18 10/30/18 10/31/18 18:44 20:15 06:37 RBC 4.03 4.15 Hgb 12.9 13.2 Hct 37.6 38.8 Urine Opiates Screen NEGATIVE - Discharge information/Instructions Discharge Activity: Activity As Tolerated, No Lifting Over 10 Pounds, Pelvic Rest Discharge Diet: As Tolerated, Regular Disposition: HOME, SELF-CARE Follow up with: [facility] in: 4, Weeks
[2018-11-01] MEDS: FAMOTIDINE 20 MG TABLET PO SCH (10:32)
[2018-11-01] MEDS: PRENATAL VITAMIN W DHA CAPSULE PO SCH (10:32)
[2018-11-01] MEDS: FERROUS SULFATE 325 MG TABLET PO SCH (10:32)
[2018-11-01] MEDS: SENNOSIDES/DOCUSATE 8.6-50 MG 1 EACH TABLET PO SCH (10:33)
[2018-11-01] MEDS: DOCUSATE SODIUM 100 MG CAPSULE PO SCH (10:33)
--- NOTE | 2018-11-02 17:28 | Delivery Summary ---
Del Sum A-C Datetime Report Generated by CPN: 11/02/2018 17:28 DELIVERY PERSONNEL DELIVERY PERSONNEL: [id number] Delivery Doctor:: Manasa Elizabeth MD Labor and Delivery Nurse:: Saumya Barcenas RN Nursery Nurse:: Mable Crocker RN Nursery Nurse:: Etta Gates RN [employer]x Architect/ANGLE DOZER OPERATOR: Leila Enamorado, ST MATERNAL INFORMATION Delivery Anesthesia: None Medications After Delivery: Pitocin Bolus-Please Comment Estimated Blood Loss (ml): 100 Delivery QBL: 100 Delivery QBL Comment: 100 Maternal Complications: None Provider Comments: VMI delivered in MEME presentation. No nuchal cord. Shoulders and body delivered without difficulty. COrd doubly clamped and cut and to maternal abdomen for NRP. Placenta delivered intact spontaneously. FF at U. MOther and baby stable upon provider leaving the room. No perineal lacerations. LABOR SUMMARY EDC: 11/05/2018 00:00 No. Babies in Womb: 1 Attempted: No Labor Anesthesia: None LABOR INFORMATION Reason for Induction: Not Applicable Onset of Labor: 10/30/2018 16:30 Oxytocin: Augmentation Group B Beta Strep: Negative Antibiotics # of Doses: 0 Steroids Given: None Reason Steroids Not Administered: Not Applicable MEMBRANES Membranes Rupture Method: Spontaneous Rupture of Membranes: 10/30/2018 20:55 Length of Rupture (hr): 1.40 Amniotic Fluid Color: Clear Amniotic Fluid Amount: Small Amniotic Fluid Odor: Normal STAGES OF LABOR Stage 3 hr: 0 Stage 3 min: 3 Total Time in Labor hr: 5 Total Time in Labor min: 52 VAGINAL DELIVERY Episiotomy: None Laceration #1: None Laceration Extension #1: N/A Laceration Repair: Not Applicable Sponge Count Correct: Yes Sharps Count Correct: Yes BABY A INFORMATION Infant Delivery Date/Time: 10/30/2018 22:19 Method of Delivery: Vaginal Born in Route : No : N/A Forceps: N/A Vacuum Extraction: N/A Shoulder Dystocia : No PRESENTATION/POSITION BABY A Presentation: Cephalic Cephalic Presentation: Vertex Vertex Position: Left Occipital Anterior Breech Presentation: N/A PLACENTA INFORMATION BABY A Placenta Delivery Time : 10/30/2018 22:22 Placenta Method of Delivery: Spontaneous Placenta Status: Delivered SCORES BABY A Heart Rate 1 min: >100 bpm Resp Effort 1 min: Good Cry Reflex Irritability 1 min: Cough or Sneeze or Pulls Away Muscle Tone 1 min: Active Motion Color 1 min: Body [place], Extremities Blue Resuscitation Effort 1 min: Tactile Stimulation SCORE 1 MIN: 9 Heart Rate 5 min: >100 bpm Resp Effort 5 min: Good Cry Reflex Irritability 5 min: Cough or Sneeze or Pulls Away Muscle Tone 5 min: Active Motion Color 5 min: Body [place], Extremities Blue Resuscitation Effort 5 min: Tactile Stimulation SCORE 5 MIN: 9 INFANT INFORMATION BABY A Gestational Age at Delivery: 39.1 Gestational Status: Full Term- 39- 40.6 Weeks Infant Outcome : Liveborn Condition : Stable Sex: Male IDENTIFICATION BABY A Verification Date/Time: 10/30/2018 22:39 ID Band Number: [id number] Mother's Name Verified: Yes Infant RN Verifying : L. Barcenas, RN Additional Verifying Personnel: Veronika Rodriguez, RN WEIGHT/LENGTH BABY A Birthweight (gm): 3478 Weight (lb): 7 Infant Weight (oz): 11 Length (in): 20.25 Infant Length (cm): 51.44 CORD INFORMATION BABY A No. Cord Vessels: 3 Nuchal Cord : N/A Cord Blood Taken: Yes-For Storage (Mom's Blood type +) Suction: None ASSESSMENT BABY A Skin to Skin: Yes BABY B INFORMATION : N/A SIGNATURES Signature: with User ID: Kings
== END 2018-11-01 17:39 | disposition home or self-care (01) | DRG 807 ==
LOC: LC 18:36 → LR 19:40 → 2S 10-31 00:22
PROVIDERS: ADMIT Student in an Organized Health Care Education/Training Program; ATTEND Student in an Organized Health Care Education/Training Program
PROC: 10E0XZZ Delivery of Products of Conception, External Approach (ICD-10-PCS; principal; 2018-10-30)
DX: O99.334 Smoking (tobacco) complicating childbirth (principal); Z37.0 Single live birth; F17.210 Nicotine dependence, cigarettes, uncomplicated; Z3A.39 39 weeks gestation of pregnancy
CPT/HCPCS: 36415; 59025; 80307; 81005; 85025; 85027; 86850; 86900; 86901; J2590; J3490